=== PATIENT | male | born 1975 | race Caucasian/White ===

== ENCOUNTER → 2020-05-27 | Outpatient (CLI) | payer BC ==
[~2020-05-27] MED LIST: HYDR-3135 PO; LISI10TA2 PO; SERT50TA PO; ZOLP5TAB PO
--- NOTE | 2020-05-27 14:14 | KCIC ---
FOOT BILAT 3V 05/27/2020 12:00 AM INDICATION: Bilateral foot pain, left foot feels worse. COMPARISON: None available. TECHNIQUE: 3 views of the right and 3 views of left foot are provided. FINDINGS/ IMPRESSION: Left foot: There is mild metatarsophalangeal joint space narrowing involving the first digit. Hallux sesamoids are intact. No periosteal reaction or osseous erosion. No significant soft tissue swelling. No acute fracture or dislocation. Right foot: There is no acute fracture or dislocation. Joint spaces are maintained. Bone mineralization is within normal limits. Regional soft tissues are within normal limits. There is no soft tissue gas or osseous erosion. No radiopaque foreign body. Electronically signed by: Alexandra Cordon MD (05/27/2020 2:11 PM) [id number]
== END | disposition home or self-care (01) ==
LOC: KCIC 09:58
PROVIDERS: ATTEND Family Medicine
DX: M79.671 Pain in right foot (principal); M79.672 Pain in left foot
CPT/HCPCS: 73630

== ENCOUNTER → 2021-05-11 | Outpatient (CLI) | payer OTHER ==
[~2021-05-11] MED LIST changes: +LISI10TA16 PO; -LISI10TA2 PO; +[UNRECOGNIZED DRUG - OTHER] PO
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
== END | disposition home or self-care (01) ==
LOC: PNCL 08:02
PROVIDERS: ATTEND Anesthesiology
DX: M54.5 Low back pain (principal); M79.605 Pain in left leg; I10 Essential (primary) hypertension; M19.90 Unspecified osteoarthritis, unspecified site; Z87.891 Personal history of nicotine dependence; Z79.899 Other long term (current) drug therapy; Z98.890 Other specified postprocedural states
CPT/HCPCS: G0463

== ENCOUNTER → 2021-05-25 | Outpatient (CLI) | payer OTHER ==
[~2021-05-25] MED LIST changes: +IOHEXOL 180 MG/ML 10 ML VIAL. ONE; +methylPREDNISolone ACETATE 80 MG/ML VIAL. ONE
--- NOTE | 2021-05-25 08:36 | PDOC ---
Progress Note - Pain Clinic Date of Service: DOS: DATE: 05/25/21 TIME: 08:32 Diagnosis: Dx: Lumbar radiculopathy with lumbar degenerative disc disease History or Present Illness: HPI: 45-year-old male returns for follow-up after initial evaluation and had MRI scan ordered we now have results of that which we discussed with him today, showing significant symmetric disc bulge at L4-5 with ligamentum flavum thickening resulting in mild bilateral lateral recess stenosis and mild to moderate left and mild right foraminal stenosis at L5-S1 joint asymmetric posterior left lateral disc bulge with facet arthropathy resulting in marked left and moderate right foraminal stenosis and mild bilaterally lateral recess stenosis. Patient reports pain low back left lower extremity posterior gluteus posterior thigh lateral thigh posterior calf to the ankle worse with walking standing patient reports he is fallen again over the past few days which is becoming more prevalent and frequent. Patient reports pain is shooting tingling burning in the left leg in the low back radiating dull and aching across the low back itself patient rates the pain a 10 at its worst 9 on average 5 its least and is a 7 today. Patient reports no bowel or bladder incontinence no loss of motor function but again falling with more fatigability in the left lower extremity. Physical Exam: VS: Blood pressure is 165/73 pulse 85 respirations 18 temperature 90.5 F height is 6 feet 2 inches weight 298 pounds PE: PHYSICAL EXAMINATION: GENERAL: The patient is awake, alert, oriented, appropriate, very pleasant in demeanor HEENT: Shows normocephalic, atraumatic. Extraocular movements are intact and symmetrical. Oral cavity: Mucous membranes moist and pink. Dentition is inta ct. NECK: Shows anterior throat supple without palpable lymphadenopathy noted. Swallow reflex symmetrical. CHEST: Shows normal on inspection. Breath sounds are clear bilaterally, no rales or rhonchi. HEART: Shows S1, S2 clear. No murmurs auscultated. ABDOMEN: Soft, nontender, nondistended, obese. No palpable organomegaly is noted. BACK: Shows spine grossly in the midline. Normal-appearing cervical lordotic curvature. There is slightly increased thoracic kyphosis, some minor flattening of the lumbar lordotic curvature. Lumbar paraspinous muscles show symmetrical on inspection, on palpation shows some moderate tenderness diffusely throughout the upper, middle and lower distribution of the paraspinous muscles without specific trigger points, without radiation of pain. The patient has good rotational motion of the lumbar spine, both laterally as well as extension and flexion without significant difficulty. EXTREMITIES: Lower extremities show deep tendon reflexes 2+ in the patellar and tendo calcaneus tendons. Motor exam is 5 on a scale of 5 with right dorsiflexion, extension, quadriceps and hamstring flexion and 4/5 on the left. Peripheral pulses are 1+ posterior tibial. No peripheral edema is noted bilaterally. Lower extremities are warm and dry to touch, equal in color and appearance. SKIN: Shows warm and dry, good turgor. No edema. No sores, rashes or bruising throughout. Procedure: Procedure: Options discussed with patient. Patient chart was reviewed his current medication regimen updated current review of systems updated today as well. We will proceed with lumbar epidural steroid injection today with fluoroscopic guidance. Risks were discussed including but not limited to: Bleeding, infection, possibility of epidural hematoma and subsequent neurological compromise, dural puncture, headaches, spinal cord and/or nerve damage, side effects of steroid medication, and poor results regarding pain control. Patient understands and wished to proceed. Patient will return to the clinic in approximate 2 weeks for follow-up, was counseled as return appointment, activity level, and side effects to be aware of. Medication Injected: Med Injected: Procedure is lumbar epidural steroid injection under local anesthetic using sterile prep and drape at the L5-S1 level using C-arm fluoroscopic guidance in both AP and lateral views medications injected is 120 mg Depo-Medrol +10mL preservative-free normal saline and 2 mL contrast- condition at discharge is stable patient tolerated procedure well had no complications. Condition at Discharge: Condition at Discharge: Condition at discharge is stable, patient tolerated procedure well and had no complications. MARYURI BURR MD May 25, 2021 08:36
--- NOTE | 2021-05-25 08:36 | PDOC4 ---
Procedure Note: ICD 10 Code: ICD 10 Code: M51.17 M51.87 Procedure Note: Patient was consented for lumbar epidural steroid injection with fluoroscopic guidance. Risks were discussed including but not limited to: Bleeding, infection, possibility of epidural hematoma and subsequent neurological compromise, dural puncture, headaches, spinal cord and/or nerve damage, side effects of steroid medication, and poor results regarding pain control. Patient understands and wished to proceed. Procedure is lumbar epidural steroid injection under local anesthetic using sterile prep and drape at the L5-S1 level using C-arm fluoroscopic guidance in both AP and lateral views medications injected is 120 mg Depo-Medrol +10mL preservative-free normal saline and 2 mL contrast- condition at discharge is stable patient tolerated procedure well had no complications. MARYURI BURR MD May 25, 2021 08:36
== END | disposition home or self-care (01) ==
LOC: PNCL 08:04
PROVIDERS: ATTEND Anesthesiology
DX: M51.16 Intervertebral disc disorders with radiculopathy, lumbar region (principal); Z79.899 Other long term (current) drug therapy
CPT/HCPCS: 62323; J1040; Q9965

== ENCOUNTER → 2021-06-10 | Outpatient (CLI) | payer OTHER ==
[~2021-06-10] MED LIST changes: -IOHEXOL 180 MG/ML 10 ML VIAL. ONE; -methylPREDNISolone ACETATE 80 MG/ML VIAL. ONE
--- NOTE | 2021-06-10 08:57 | PDOC ---
Progress Note - Pain Clinic Date of Service: DOS: DATE: 06/10/21 TIME: 08:53 Diagnosis: Dx: Lumbar radiculopathy with lumbar degenerative disc disease History or Present Illness: HPI: 45-year-old male returns for follow-up status post lumbar epidural steroid injection x1. Patient reports about 50% improvement in the low back and left lower extremity pain is increase his activity with greater ease and comfort doing further distance walking doing household activities work activities greater ease and comfort and travel with greater ease and comfort sleeping better at night patient reports he is very pleased with his progress although he still has some significant pain and radiating pain in an L5-S1 dermatomal distribution on the left it is much improved patient reports the intensity is much less he is able to increase his activity still having difficulty with stairs and with some weakness in the left leg but overall improved patient reports still burning pain in the back radiating constant in the left leg shooting pain posterior gluteus posterior thigh posterior calf patient reports a 9 on scale 10 is worse over the past week 8 on average 3 at its least and is an 8 today. Patient reports over the past few days the pain is beginning to return and more of a radicular pattern and becoming more noticeable especially with walking downstairs where he feels somewhat unstable and has to look at his feet to make sure he is on the steps completely and balance. Patient reports continues with physical therapy exercises stretching and strengthening as well as bicycle riding and walking. Patient reports no bowel or bladder incontinence. Physical Exam: VS: Blood pressure is 143/96 pulse 81 respirations 18 temperature is 98.3 F height 6 feet 2 inches weight is 285 pounds PE: PHYSICAL EXAMINATION: GENERAL: The patient is awake, alert, oriented, appropriate, very pleasant in demeanor HEENT: Shows normocephalic, atraumatic. Extraocular movements are intact and symmetrical. Oral cavity: Mucous membranes moist and pink. Dentition is intact. NECK: Shows anterior throat supple without palpable lymphadenopathy noted. Swallow reflex symmetrical. CHEST: Shows normal on inspection. Breath sounds are clear bilaterally, distant but no rales or rhonchi. HEART: Shows S1, S2 clear. No murmurs auscultated. ABDOMEN: Soft, nontender, nondistended, obese. No palpable organomegaly is noted. BACK: Shows spine grossly in the midline. Normal-appearing cervical lordotic curvature. There is slightly increased thoracic kyphosis, some minor flattening of the lumbar lordotic curvature. Lumbar paraspinous muscles show symmetrical o n inspection, on palpation shows some moderate tenderness diffusely throughout the upper, middle and lower distribution of the paraspinous muscles without specific trigger points, without radiation of pain. The patient has good rotational motion of the lumbar spine, both laterally as well as extension and flexion without significant difficulty. EXTREMITIES: Lower extremities show deep tendon reflexes 2+ in the patellar and tendo calcaneus tendons. Motor exam is 5 on a scale of 5 with right dorsiflexion, extension, quadriceps and hamstring flexion and 4/5 on the left. Peripheral pulses are 1 posterior tibial. No peripheral edema is noted bilaterally. Lower extremities are warm and dry to touch, equal in color and appearance. SKIN: Shows warm and dry, good turgor. No edema. No sores, rashes or bruising throughout. Procedure: Procedure: Options were discussed with patient. Patient's old chart was reviewed his current medication regimen updated current review of systems updated today as well. We will preauthorize patient for a second lumbar epidural steroid injection with fluoroscopic guidance. Patient with persistent radicular pain in L5-S1 dermatomal distribution on the left. Patient continue with stretching strength exercise as well as oral analgesics and anti-inflammatories as currently. Once approved, patient will return for a translaminar approach at the L5-S1 level lumbar epidural steroid injection with fluoroscopic guidance at that time. Medication Injected: Med Injected: None Condition at Discharge: Condition at Discharge: Condition at discharge is stable. MARYURI BURR MD Jun 10, 2021 08:57
== END | disposition home or self-care (01) ==
LOC: PNCL 08:34
PROVIDERS: ATTEND Anesthesiology
DX: M51.16 Intervertebral disc disorders with radiculopathy, lumbar region (principal); Z79.899 Other long term (current) drug therapy
CPT/HCPCS: 99212; G0463

== ENCOUNTER → 2021-06-17 | Outpatient (CLI) | payer OTHER ==
[~2021-06-17] MED LIST changes: +IOHEXOL 180 MG/ML 10 ML VIAL. ONE; +ZOLP5TAB5 PO; +methylPREDNISolone ACETATE 80 MG/ML VIAL. ONE
--- NOTE | 2021-06-17 10:09 | PDOC ---
Progress Note - Pain Clinic Date of Service: DOS: DATE: 06/17/21 TIME: 10:04 Diagnosis: Dx: Lumbar radiculopathy with lumbar degenerative disc disease History or Present Illness: HPI: 45-year-old male returns for follow-up status post lumbar epidural steroid injection x1 with about 50% improvement overall in the low back left lower extremity pain patient reports new finding of increased weakness in the left leg and numbness in the toes when he is active and stumbling and has fallen several times since he was last seen patient reports is becoming more noticeable with some weakness in the leg has been giving out on him and he actually has fallen several times patient reports numbness in the toes he has difficulty navigating his foot without looking at it while he is walking patient also reports some increased sensation of bowel incontinence but has not had any actual incontinence currently but has increased sense of urgency as well. Patient reports his pain is a 10 on scale 10 is worse over the past week 9 on average 6 its least it is a 9-day patient ports shooting burning cramping stabbing again with numbness in the toes on the left side radiating and constant. Patient reports the first 2 weeks to do much better though with distance walking doing house activities work activities to try with greater ease and comfort with his new weakness is becoming more concerning for him. Patient reports is awakened from sleep about every 3-4 hours as well. Physical Exam: VS: Blood pressure is 141/99 pulse 76 respirations 16 temperature is 98.3 F weight is 293 pounds PE: PHYSICAL EXAMINATION: GENERAL: The patient is awake, alert, oriented, appropriate, very pleasant in demeanor HEENT: Shows normocephalic, atraumatic. Extraocular movements are intact and symmetrical. Oral cavity: Mucous membranes moist and pink. Dentition is intact. NECK: Shows anterior throat supple without palpable lymphadenopathy noted. Swallow reflex symmetrical. CHEST: Shows normal on inspection. Breath sounds are clear bilaterally, no rales rhonchi or wheeze. HEART: Shows S1, S2 clear. No murmurs auscultated. ABDOMEN: Soft, nontender, nondistended, obese. No palpable organomegaly is noted. BACK: Shows spine grossly in the midline. Normal-appearing cervical lordotic curvature. There is slightly increased thoracic kyphosis, some flattening of the lumbar lordotic curvature. Lumbar paraspinous muscles show symmetrical on inspection, on palpation shows some moderate tenderness diffusely throughout the upper, middle and lower distribution of the paraspinous muscles, but without specific trigger points, without radiation of pain. The patient has good rotational motion of the lumbar spine, both laterally as well as extension and flexion without significant difficulty. No tenderness over the spinous processes, sacrum or sacroiliac regions. EXTREMITIES: Lower extremities show deep tendon reflexes 2+ in the patellar and tendo calcaneus tendons. Motor exam is 5 on a scale of 5 with right dorsiflexion, extension, quadriceps and hamstring flexion and 4/5 on the left. Peripheral pulses are 1+ posterior tibial. No peripheral edema is noted bila terally. Lower extremities are warm and dry. SKIN: Shows warm and dry, good turgor. No edema. No sores, rashes or bruising throughout. Procedure: Procedure: Options discussed with patient. Patient chart was reviewed his current medication regimen updated current review of systems updated today as well. We'll proceed with a lumbar epidural steroid action today with fluoroscopic guidance. Risks were discussed including but not limited to: Bleeding, infection, possibility of epidural hematoma and subsequent neurological compromise, dural puncture, headaches, spinal cord and/or nerve damage, side e ffects of steroid medication, and poor results regarding pain control. Patient understands and wished to proceed. Patient will return to clinic in approximate 2 weeks for follow-up, was counseled as return appointment, activity level, and side effects beware of. Medication Injected: Med Injected: Procedure is lumbar epidural steroid injection under local anesthetic using sterile prep and drape at the L5-S1 level using C-arm fluoroscopic guidance in both AP and lateral views medications injected is 120 mg Depo-Medrol +10mL preservative-free normal saline and 2 mL contrast- condition at discharge is stable patient tolerated procedure well had no complications. Condition at Discharge: Condition at Discharge: Condition at discharge stable, patient alert the procedure well and had no complications. MARYURI BURR MD Jun 17, 2021 10:09
--- NOTE | 2021-06-17 10:09 | PDOC4 ---
Procedure Note: ICD 10 Code: ICD 10 Code: M54.17 M51.87 Procedure Note: Patient was consented for lumbar epidural steroid injection with fluoroscopic guidance. Risks were discussed including but not limited to: Bleeding, infection, possibility of epidural hematoma and subsequent neurological compromise, dural puncture, headaches, spinal cord and/or nerve damage, side effects of steroid medication, and poor results regarding pain control. Patient understands and wished to proceed. Procedure is lumbar epidural steroid injection under local anesthetic using sterile prep and drape at the L5-S1 level using C-arm fluoroscopic guidance in both AP and lateral views medications injected is 120 mg Depo-Medrol +10mL preservative-free normal saline and 2 mL contrast- condition at discharge is stable patient tolerated procedure well had no complications. MARYURI BURR MD Jun 17, 2021 10:09
== END | disposition home or self-care (01) ==
LOC: PNCL 09:18
PROVIDERS: ATTEND Anesthesiology
DX: M51.16 Intervertebral disc disorders with radiculopathy, lumbar region (principal); Z79.899 Other long term (current) drug therapy
CPT/HCPCS: 62323; J1040; Q9965

== ENCOUNTER → 2021-12-15 | Outpatient (CLI) | payer OTHER ==
[~2021-12-15] MED LIST changes: +DEXAMETHASONE PRES.FREE 10 MG/ML VIAL. ONE; -methylPREDNISolone ACETATE 80 MG/ML VIAL. ONE
--- NOTE | 2021-12-15 09:39 | PDOC ---
Progress Note - Pain Clinic Date of Service: DOS: DATE: 12/15/21 TIME: 09:35 Diagnosis: Dx: Lumbar radiculopathy with lumbar degenerative disc disease History or Present Illness: HPI: 46-year-old male returns for follow-up last seen June 17, 2021 patient had lumbar epidural steroid injection with about 75% improvement pain in the low back and left lower extremity patient reports her pain is returning now but is radiating the posterior gluteus posterior thigh posterior calf on the left side as well as in the posterior gluteus on the right side which is new for him patient has not had this in the past but does not travel as far in the right lower extremity patient also has pain in the right upper extremity including the entire arm into the hand and fingers with some difficulty with fine motor control of the right hand at times patient reports is maybe twice to 3 times a week but goes away fairly quickly patient reports it is painful but more of a numbness and weakness feeling in the right arm. We discussed possibility of MRI cervical spine after today's visits and patient is interested in pursuing this to better differentiate any radicular causes that may be in the right upper extremity. Patient reports the pain in the back in the lower extremities are sharp and shooting burning radiating constant can be severe and unbearable worse with standing also with walking but mostly with standing still patient reports of the right side again is unusual that it is painful on the right side is usually on the left with is, over the past month or so patient reports a 10 on scale 10 is worse over the past week 9 on average 7 its least is a 7 today patient reports no injury or accident recently no falls. Patient reports no bowel or bladder incontinence. Physical Exam: VS: Blood pressure is 136/95 pulse 69 respirations 18 temperature 98.4 F height is 6 foot 2 inches weight is 309 pounds. PE: PHYSICAL EXAMINATION: GENERAL: The patient is awake, alert, oriented, appropriate, very pleasant in demeanor HEENT: Shows normocephalic, atraumatic. Extraocular movements are intact and symmetrical. Oral cavity: Mucous membranes moist and pink. Dentition is intact. NECK: Shows anterior throat supple without palpable lymphadenopathy noted. Sw allow reflex symmetrical. CHEST: Shows normal on inspection. Breath sounds are clear bilaterally, no rales rhonchi wheezes auscultated. HEART: Shows S1, S2 clear. No murmurs auscultated. ABDOMEN: Soft, nontender, nondistended. No palpable organomegaly is noted. BACK: Shows spine grossly in the midline. Normal-appearing cervical lordotic curvature. There is mildly increased thoracic kyphosis, some minor flattening of the lumbar lordotic curvature. Lumbar paraspinous muscles show symmetrical on inspection, on palpation shows some moderate tenderness diffusely throughout the upper, middle and lower distribution of the paraspinous muscles, but without specific trigger points, without radiation of pain. The patient has good rotational motion of the lumbar spine, both laterally as well as extension and flexion. No tenderness over the spinous processes, sacrum or sacroiliac regions . EXTREMITIES: Lower extremities show deep tendon reflexes 2+ in the patellar and tendo calcaneus tendons. Motor exam is 5 on a scale of 5 with right dorsiflexion, extension, quadriceps and hamstring flexion and 4/5 on the left. Peripheral pulses are 1+ posterior tibial. No peripheral edema is noted bilaterally. Lower extremities are warm and dry to touch, equal in color and ap pearance. SKIN: Shows warm and dry, good turgor. No edema. No sores, rashes or bruising throughout. Procedure: Procedure: Options discussed with the patient. Patient's old chart was reviewed as his current medication regimen updated current review of systems updated today as well. We will proceed with a lumbar epidural steroid injection today with fluoroscopic guidance. Risks were discussed including but not limited to: Bleeding, infection, possibility of epidural hematoma and subsequent neurological compromise, dural puncture, headaches, spinal cord and/or nerve damage, side effects of steroid medication, and poor results regarding pain control. Patient understands and wished to proceed. Patient return to the clinic in approximate 2 weeks for follow-up, was counseled as return appointment, activity level, and side effects to be aware of. Medication Injected: Med Injected: Procedure is lumbar epidural steroid injection under local anesthetic using sterile prep and drape at the L5-S1 level using C-arm fluoroscopic guidance in both AP and lateral views medications injected is 20 mg dexamethasone +10mL preservative-free normal saline and 2 mL contrast- condition at discharge is stable patient tolerated procedure well had no complications. Condition at Discharge: Condition at Discharge: Condition at discharge is stable, patient tolerated procedure well and had no complications. MARYURI BURR MD Dec 15, 2021 09:39
--- NOTE | 2021-12-15 09:43 | PDOC4 ---
Procedure Note: ICD 10 Code: ICD 10 Code: M54.17 M51.36 Procedure Note: Patient was consented for lumbar epidural steroid injection with fluoroscopic guidance. Risks were discussed including but not limited to: Bleeding, infection, possibility of epidural hematoma and subsequent neurological compromise, dural puncture, headaches, spinal cord and/or nerve damage, side effects of steroid medication, and poor results regarding pain control. Patient understands and wished to proceed. Procedure is lumbar epidural steroid injection under local anesthetic using sterile prep and drape at the L5-S1 level using C-arm fluoroscopic guidance in both AP and lateral views medications injected is 20 mg dexamethasone +10mL preservative-free normal saline and 2 mL contrast- condition at discharge is stable patient tolerated procedure well had no complications. MARYURI BURR MD Dec 15, 2021 09:43
== END | disposition home or self-care (01) ==
LOC: PNCL 08:42
PROVIDERS: ATTEND Anesthesiology
DX: M51.16 Intervertebral disc disorders with radiculopathy, lumbar region (principal); Z79.899 Other long term (current) drug therapy
CPT/HCPCS: 62323; J1100; Q9965

== ENCOUNTER → 2022-01-04 | Outpatient (CLI) | payer OTHER ==
[~2022-01-04] MED LIST changes: -DEXAMETHASONE PRES.FREE 10 MG/ML VIAL. ONE; -IOHEXOL 180 MG/ML 10 ML VIAL. ONE
--- NOTE | 2022-01-04 10:15 | PDOC ---
Progress Note - Pain Clinic Date of Service: DOS: DATE: 01/04/22 TIME: 10:12 Diagnosis: Dx: Lumbar radiculopathy with lumbar degenerative disc disease History or Present Illness: HPI: 46-year-old male returns for follow-up status post lumbar epidural steroid injection x3. Patient reports no significant improvement after his last injection however his first 2 injections were in May 2021 most recently December 15, 2021 with still significant pain low back and left lower extremity now some significant weakness in the left leg with standing walking he stumbled several times and fell once earlier prior to his last injection but patient reports pain is becoming worse in the low back left lower extremity posterior gluteus posterior thigh posterior lateral thigh posterior calf and foot patient reports tingling and burning in the back sharp and shooting in the leg radiating the lower extremity rate is a 10 on scale 10 is worse over the past week 8 on average 6 its least and is an 8 today. Patient reports he is having increased f eelings of weakness in the leg as well no motor deficits but significant fatigue in the left leg with any activity especially walking or standing for more than 5 to 10 minutes. Patient reports no bowel or bladder incontinence. Physical Exam: VS: Blood pressure is 157/99 pulse 70 respirations 18 temperature 98.2 F height 61 inches weight is 310 pounds. PE: PHYSICAL EXAMINATION: GENERAL: The patient is awake, alert, oriented, appropriate, very pleasant in demeanor HEENT: Shows normocephalic, atraumatic. Extraocular movements are intact and symmetrical. Oral cavity: Mucous membranes moist and pink. Dentition is intact. NECK: Shows anterior throat supple without palpable lymphadenopathy noted. Swallow reflex symmetrical. CHEST: Shows normal on inspection. Breath sounds are clear bilaterally, no rales rhonchi or wheezes auscultated. HEART: Shows S1, S2 clear. No murmurs auscultated. ABDOMEN: Soft, nontender, nondistended. No palpable organomegaly is noted. BACK: Shows spine grossly in the midline. Normal-appearing cervical lordotic curvature. There is slightly increased thoracic kyphosis, some flattening of the lumbar lordotic curvature. Lumbar paraspinous muscles show symmetrical on inspection, on palpation shows some moderate tenderness diffusely throughout the upper, middle and lower distribution of the paraspinous muscles, without specific trigger points, without radiation of pain. The patient has good rotational motion of the lumbar spine, both laterally as well as extension and flexion without significant difficulty. EXTREMITIES: Lower extremities show deep tendon reflexes 2 in the patellar and tendo calcaneus tendons. Motor exam is 5 on a scale of 5 with right dorsiflexion, extension, quadriceps and hamstring flexion and 4/5 on the left. Peripheral pulses are 1 posterior tibial. No peripheral edema is noted bilate rally. Lower extremities are warm and dry to touch, equal in color and appearance. SKIN: Shows warm and dry, good turgor. No edema. No sores, rashes or bruising throughout. Procedure: Procedure: Options discussed with the patient. Patient's old chart was viewed as was his current medication regimen updated, and current review of systems updated today as well. We will obtain a new MRI scan lumbar spine as patient has significant increase in weakness in the left lower extremity in a radicular pattern as well also make referral for neurosurgical evaluation per patient's request. Patient will follow-up after neurosurgical evaluation. Medication Injected: Med Injected: None Condition at Discharge: Condition at Discharge: Condition at discharge is stable. MARYURI BURR MD Jan 04, 2022 10:15
== END | disposition home or self-care (01) ==
LOC: PNCL 09:06
PROVIDERS: ATTEND Anesthesiology
DX: M51.16 Intervertebral disc disorders with radiculopathy, lumbar region (principal); Z79.899 Other long term (current) drug therapy
CPT/HCPCS: 99212; G0463